=== PATIENT | female | born 1965 | race Caucasian/White ===

== ENCOUNTER → 2017-10-18 | Outpatient (CLI) | payer OTHER | LOC: M RAD 16:22 | DX: R06.02 Shortness of breath (principal) ==

== ENCOUNTER → 2017-10-19 | Outpatient (CLI) | payer OTHER ==
[~2017-10-19] MED LIST: METHACHOLINE KIT (J7674) INH
== END ==
LOC: M CARPUL 09:18
DX: R06.02 Shortness of breath (principal)

== ENCOUNTER → 2019-12-10 | Outpatient (REF) | payer OTHER | LOC: M SFHCLERA 10:59 | PROVIDERS: ATTEND Nurse Practitioner Family | DX: R35.0 Frequency of micturition (principal) | CPT/HCPCS: 81002; 87088; 87186; G0463 ==

== ENCOUNTER → 2020-01-26 | Outpatient (CLI) | payer OTHER ==
--- NOTE | 2020-01-29 10:14 | REP ---
DIGITAL DIAGNOSTIC BILATERAL MAMMOGRAPHY WITH CAD, 3D TOMOGRAPHY, AND FOCUSED RIGHT BREAST SONOGRAPHY: HISTORY: Area of thickening on palpation in the medial aspect of the right breast at approximately 3-o'clock position. No available comparison mammography. [facility] B. Scattered fibroglandular elements are seen. There is no evidence of mass in the right breast or elsewhere. No dominant density, microcalcification, or architectural distortion is seen. No suspicious mammographic finding. FOCUSED RIGHT BREAST SONOGRAPHY: FINDINGS: Focused right breast sonographic findings demonstrate normal heterogeneous fibroglandular background echotexture. No mass lesion is seen. No architectural distortion or acoustic shadowing is appreciated. IMPRESSION: BIRADS 1: BI-RADS/ACR category 1 mammogram. Negative Mammogram. BI-RADS category 1 negative findings. Clinical followup is advised. Repeat screening mammography recommended in 1 year. This patient's estimated Tyrer-Cuzick lifetime risk assessment for breast cancer is 12%. This mammogram was interpreted with the aid of an FDA-approved computer-aided detection system. The patient states she had a clinical breast exam in January 20, 2020. The patient letter being requested is M#[id number].
== END ==
LOC: M WHC 11:12
PROVIDERS: ATTEND General Practice
DX: N64.9 Disorder of breast, unspecified (principal)
CPT/HCPCS: 76642; 77066; G0279